=== PATIENT | female | born 1940 | race Caucasian/White ===

== ENCOUNTER → 2016-11-22 | Outpatient (CLI) | payer OTHER ==
[~2016-11-22] MED LIST: ASPCH81X PO; CALC0.2510 PO; CALC500C70 PO; CHOL2000 PO; CMD5 PO; CYAN100020 PO; FURO20TA PO; IRON PO; LEVO50TA6 PO; METO1TAB69 PO; MULT-506 PO
--- NOTE | 2016-11-22 12:19 | DIAGNOSTIC IMAGING REPORT ---
KUB CLINICAL HISTORY: Nephrolithiasis. FINDINGS: An AP supine abdominal radiograph is compared to study dated 07/08/2016 and correlated with abdominal CT dated 06/15/2014. There is a nonobstructed abdominal bowel gas pattern. Moderate colonic fecal retention is observed. This degrades assessment of the renal shadows. There are numerous bilateral nonobstructing renal calculi which measure up to 6 mm. There is no radiographic evidence of ureteral stone. Pelvic phleboliths are observed. Suture material projects over the right and left abdomen. The skeletal structures are osteopenic. Moderate lumbosacral spondylosis is identified. IMPRESSION: 1. Bilateral nephrolithiasis. This has not appreciably changed from recent prior studies. 2. Nonobstructed abdominal bowel gas pattern noting moderate colonic fecal retention. Electronically signed by: Shiraz Vásquez M.D. 11/22/2016 12:18 PM Dictated Date/Time: 11/22/2016 12:16 PM
== END | disposition home or self-care (01) ==
LOC: C.RAD 12:02
PROVIDERS: ATTEND Urology
DX: N20.0 Calculus of kidney (principal); N39.0 Urinary tract infection, site not specified; K59.00 Constipation, unspecified

== ENCOUNTER → 2017-05-28 | Outpatient (CLI) | payer OTHER ==
--- NOTE | 2017-05-28 09:47 | DIAGNOSTIC IMAGING REPORT ---
KUB CLINICAL HISTORY: 76 years-old Female presenting with nephrolithiasis. TECHNIQUE: Single supine view of the abdomen was obtained. COMPARISON: 11/22/2016. FINDINGS: Extensive anastomotic suture lines noted in the abdomen. Surgical clips project over the right mid abdomen. Extensive bilateral calculi project over the renal shadows, with apparent increased on burden in the lower pole the left kidney. No convincing evidence of calcification along the courses of the ureters. Multiple phleboliths again noted. Moderate stool burden mildly degrades evaluation. No evidence of a bowel obstruction. No gross pneumoperitoneum. Osseous structures within normal limits. IMPRESSION: 1. Bilateral nephrolithiasis with apparent increase in stone burden at the lower pole of the left kidney. Electronically signed by: Av Coon M.D. 05/28/2017 9:45 AM Dictated Date/Time: 05/28/2017 9:41 AM
== END | disposition home or self-care (01) ==
LOC: C.RAD 09:03
PROVIDERS: ATTEND Urology
DX: N20.0 Calculus of kidney (principal); I48.0 Paroxysmal atrial fibrillation